=== PATIENT | male | born 1980 | race Native Hawaiian/Other Pacific Islander ===

== ENCOUNTER 2017-01-06 07:51 | Emergency (ER) | payer OTHER ==
[~2017-01-06] VITALS: Ht 175.3 cm; Wt 83.9 kg
[~2017-01-06 07:51] MED LIST: BUSP15TAB2 PO; LEXAPRO20 MG PO; LISI5TAB10 PO; LORTAB 5-325 MG1 TAB PO; PENI500T14 PO; PHENTERMINE15 MG PO
[2017-01-06 08:00] VITALS: TEMP 98
[2017-01-06 08:30] LABS: PLATELET COUNT 223 K/uL (142-355)
[2017-01-06 08:40] LABS: POTASSIUM 3.6 mmol/L (3.6-5.2); SODIUM 136 mmol/L (136-145)
[2017-01-06 09:30] VITALS: BP 121/84
[2017-01-07] MEDS ORDERED: METO25TA4 PO (16:43)
== END 2017-01-06 09:40 | disposition home or self-care (01) ==
LOC: ED 07:51
DX: R07.89 Other chest pain (principal)
CPT/HCPCS: 36415; 80053; 82550; 84484; 85027; 86318; 93005; 99284

== ENCOUNTER 2017-01-07 13:29 | Observation (INO) | payer OTHER ==
[~2017-01-07] VITALS: Ht 180.3 cm; Wt 98.0 kg
[2017-01-07 15:18] LABS: PLATELET COUNT 223 K/uL (142-355)
[2017-01-07 15:31] LABS: PARTIAL THROMBOPLASTIN TIME 23.6 SECONDS (24.5-33.6)
[2017-01-07 15:51] VITALS: BP 141/95; TEMP 98.9; Ht 180.3 cm; Wt 98.0 kg
[2017-01-07 16:00] VITALS: BP 127/88; TEMP 98.3
[2017-01-07] MEDS ORDERED: METO25TA4 PO (16:43)
[2017-01-07 17:22] LABS: POTASSIUM 3.8 mmol/L (3.6-5.2); SODIUM 137 mmol/L (136-145)
[2017-01-07 20:00] VITALS: BP 121/73; TEMP 98.6
[2017-01-08] VITALS: BP 116/63; TEMP 97.9
[2017-01-08 04:00] VITALS: BP 143/87; TEMP 97.8
[2017-01-08 07:29] LABS: PLATELET COUNT 220 K/uL (142-355)
[2017-01-08 08:00] VITALS: BP 119/85; TEMP 98
[2017-01-08 08:16] LABS: POTASSIUM 4.3 mmol/L (3.6-5.2); SODIUM 140 mmol/L (136-145)
== END 2017-01-08 14:15 | disposition home or self-care (01) ==
LOC: MED/SURG 13:29
PROVIDERS: ADMIT Family Medicine
DX: R07.89 Other chest pain (principal); R55 Syncope and collapse; R09.81 Nasal congestion; G44.89 Other headache syndrome; R04.0 Epistaxis
CPT/HCPCS: 80053; 82550; 82553; 83735; 84484; 85027; 85610; 85730; 93005; 96372; 99220; G0378; G0379; J1650

== ENCOUNTER 2017-04-07 13:41 | Emergency (ER) | payer OTHER ==
[~2017-04-07] VITALS: Ht 180.3 cm; Wt 95.3 kg
[~2017-04-07 13:41] MED LIST changes: +METO25TA4 PO
[2017-04-07 13:45] VITALS: BP 152/105; TEMP 98.5
[2017-04-07 14:03] LABS: PLATELET COUNT 248 K/uL (142-355)
[2017-04-07 14:14] LABS: POTASSIUM 4.2 mmol/L (3.6-5.2); SODIUM 135 mmol/L (136-145)
== END 2017-04-07 15:24 | disposition home or self-care (01) ==
LOC: ED 13:41
DX: N20.1 Calculus of ureter (principal); R10.9 Unspecified abdominal pain
CPT/HCPCS: 36415; 80053; 81000; 85027; 96360; 96361; 96374; 99284; J1885

== ENCOUNTER 2017-08-27 17:35 | Outpatient (CLI) | payer OTHER | END 2017-08-27 22:01 | disposition home or self-care (01) | LOC: LABW 17:35 | DX: R53.83 Other fatigue (principal) | CPT/HCPCS: 36415; 84402; 84403 ==

== ENCOUNTER 2018-03-20 17:23 | Outpatient (CLI) | payer OTHER ==
[2018-03-20 18:01] LABS: PLATELET COUNT 249 K/uL (142-355)
[2018-03-20 18:19] LABS: POTASSIUM 3.6 mmol/L (3.6-5.2); SODIUM 138 mmol/L (136-145)
[2018-03-21] MEDS ORDERED: PROZAC10 MG PO (18:15)
== END 2018-03-20 21:55 | disposition home or self-care (01) ==
LOC: LABW 17:23
PROVIDERS: Nurse Practitioner Family
DX: I10 Essential (primary) hypertension (principal)
CPT/HCPCS: 36415; 80053; 82550; 82553; 84484; 85027; 93005

== ENCOUNTER 2018-03-21 13:06 | Observation (INO) | payer OTHER ==
[~2018-03-21] VITALS: Ht 180.3 cm; Wt 107.6 kg
[2018-03-21 13:15] VITALS: BP 117/80; TEMP 98
[2018-03-21 13:55] LABS: PLATELET COUNT 248 K/uL (142-355)
[2018-03-21 14:01] LABS: POTASSIUM 3.5 mmol/L (3.6-5.2); SODIUM 140 mmol/L (136-145)
[2018-03-21 18:09] VITALS: BP 133/86; TEMP 98.1; Ht 180.3 cm; Wt 107.6 kg
[2018-03-21] MEDS ORDERED: PROZAC10 MG PO (18:15)
[2018-03-21 19:36] VITALS: BP 117/70; TEMP 98.4
[2018-03-21 23:55] VITALS: BP 134/80; TEMP 98.4
[2018-03-22 04:00] VITALS: BP 106/63; TEMP 98.7
[2018-03-22 08:18] VITALS: BP 148/98; TEMP 97.5
[2018-03-22] MEDS ORDERED: COATED ASPIRIN325 MG PO (08:43)
== END 2018-03-22 10:45 | disposition home or self-care (01) ==
LOC: ED 13:06 → MED/SURG 17:20
PROVIDERS: ADMIT Family Medicine
DX: R07.89 Other chest pain (principal); I10 Essential (primary) hypertension; Z72.0 Tobacco use
CPT/HCPCS: 36415; 80053; 81000; 82550; 82553; 84484; 85027; 93005; 99220; 99283; G0378; J1650

== ENCOUNTER 2020-03-16 14:31 | Outpatient (CLI) | payer OTHER ==
[~2020-03-16 14:31] MED LIST changes: +COATED ASPIRIN325 MG PO; +PROZAC10 MG PO
== END 2020-03-16 23:27 | disposition home or self-care (01) ==
LOC: LAB 14:31
DX: Z51.81 Encounter for therapeutic drug level monitoring (principal)
CPT/HCPCS: 80307

== ENCOUNTER 2020-03-28 15:11 | Observation (INO) | payer OTHER ==
[~2020-03-28] VITALS: Ht 175.3 cm; Wt 104.6 kg
[2020-03-28 15:35] VITALS: BP 117/66; TEMP 97.7; Ht 175.3 cm; Wt 104.6 kg
[2020-03-28 16:00] VITALS: BP 117/66; TEMP 97.9
[2020-03-28 16:27] LABS: POTASSIUM 4.2 mmol/L (3.6-5.2)
[2020-03-28 16:52] LABS: PLATELET COUNT 241 K/uL (142-355)
[2020-03-28] MEDS ORDERED: LISI20TA11 PO (18:42)
[2020-03-28] MEDS ORDERED: PROZAC10 MG PO (18:43)
[2020-03-28] MEDS ORDERED: ADDERALL20 MG (18:44)
[2020-03-28 20:00] VITALS: BP 122/84; TEMP 97.5
[2020-03-29] VITALS: BP 114/70; TEMP 98.9
[2020-03-29 04:00] VITALS: BP 111/64; TEMP 98.8
[2020-03-29 08:00] VITALS: BP 117/70; TEMP 98.7
[2020-03-29 09:28] LABS: PLATELET COUNT 197 K/uL (142-355)
[2020-03-29 09:30] LABS: POTASSIUM 3.9 mmol/L (3.6-5.2)
[2020-03-29 12:00] VITALS: BP 114/64; TEMP 99.2
== END 2020-03-29 16:25 | disposition home or self-care (01) ==
LOC: MED/SURG 15:11
PROVIDERS: ADMIT Family Medicine
DX: K52.89 Other specified noninfective gastroenteritis and colitis (principal); E86.0 Dehydration
CPT/HCPCS: 80053; 81000; 83735; 84100; 85027; 87015; 87040; 87045; 87324; 87328; 87329; 87449; 87899; 93005; 96361; 96367; 96374; 99220; G0378; G0379; J2405; J2550

== ENCOUNTER 2020-08-27 18:51 | Emergency (ER) | payer OTHER ==
[~2020-08-27] VITALS: Ht 180.3 cm; Wt 104.3 kg
[~2020-08-27 18:51] MED LIST changes: +ADDERALL20 MG; +LISI20TA11 PO
[2020-08-27 20:07] LABS: PLATELET COUNT 256 K/uL (142-355)
[2020-08-27 20:13] LABS: POTASSIUM 3.6 mmol/L (3.6-5.2)
[2020-08-27 22:43] VITALS: BP 108/71; TEMP 97.9
== END 2020-08-27 22:43 | disposition home or self-care (01) ==
LOC: ED 18:51
PROVIDERS: Emergency Medicine Emergency Medical Services
DX: N23 Unspecified renal colic (principal); Q63.1 Lobulated, fused and horseshoe kidney
CPT/HCPCS: 36415; 80048; 80307; 81000; 85027; 85379; 96360; 96361; 96375; 99284; J1170; J1885; J2405

== ENCOUNTER 2020-09-08 07:53 | Outpatient (CLI) | payer OTHER ==
[2020-09-08 08:16] LABS: POTASSIUM 3.8 mmol/L (3.6-5.2)
[2020-09-08 08:22] LABS: PLATELET COUNT 275 K/uL (142-355)
== END 2020-09-08 19:31 | disposition home or self-care (01) ==
LOC: LABW 07:53
PROVIDERS: ATTEND Internal Medicine
DX: R50.9 Fever, unspecified (principal)
CPT/HCPCS: 36415; 80053; 81000; 82150; 83690; 85027

== ENCOUNTER 2020-11-01 13:37 | Outpatient (CLI) | payer OTHER ==
[2020-11-01 14:09] LABS: PLATELET COUNT 268 K/uL (142-355)
[2020-11-01 14:54] LABS: POTASSIUM 4.1 mmol/L (3.6-5.2)
== END 2020-11-01 19:26 | disposition home or self-care (01) ==
LOC: LAB 13:37
PROVIDERS: ATTEND Nurse Practitioner Family
DX: F98.8 Other specified behavioral and emotional disorders with onset usually occurring in childhood and adolescence (principal); F41.9 Anxiety disorder, unspecified; I10 Essential (primary) hypertension; E66.9 Obesity, unspecified; R53.83 Other fatigue; Z79.899 Other long term (current) drug therapy; R53.81 Other malaise
CPT/HCPCS: 80053; 80061; 82306; 82607; 83036; 84402; 84403; 84439; 84443; 85027

== ENCOUNTER 2021-01-30 15:40 | Outpatient (CLI) | payer OTHER | END 2021-01-30 22:27 | disposition home or self-care (01) | LOC: LAB 15:40 | PROVIDERS: ATTEND Nurse Practitioner Family | DX: Z01.84 Encounter for antibody response examination (principal) | CPT/HCPCS: 86769 ==

== ENCOUNTER 2021-05-23 11:00 | Outpatient (CLI) | payer OTHER ==
[~2021-05-23] VITALS: Ht 180.3 cm; Wt 105.2 kg
== END 2021-05-23 19:13 | disposition home or self-care (01) ==
LOC: INF 11:00
PROVIDERS: ATTEND Nurse Practitioner Family
DX: Z23 Encounter for immunization (principal); U07.1 COVID-19
CPT/HCPCS: 96365; M0244

== ENCOUNTER 2022-07-11 13:06 | Outpatient (CLI) | payer OTHER ==
[2022-07-11 13:31] LABS: PLATELET COUNT 309 K/uL (142-355)
== END 2022-07-11 19:31 | disposition home or self-care (01) ==
LOC: LAB 13:06
PROVIDERS: ATTEND Nurse Practitioner Family
DX: F98.8 Other specified behavioral and emotional disorders with onset usually occurring in childhood and adolescence (principal); F41.9 Anxiety disorder, unspecified; I10 Essential (primary) hypertension; F32.9 Major depressive disorder, single episode, unspecified; E66.9 Obesity, unspecified; R53.83 Other fatigue; Z79.899 Other long term (current) drug therapy; R53.81 Other malaise; R68.82 Decreased libido; R68.89 Other general symptoms and signs
CPT/HCPCS: 80053; 80061; 82306; 83036; 84402; 84403; 84439; 84443; 85027